=== PATIENT | male | born 1980 | race Caucasian/White ===

== ENCOUNTER 2018-02-10 15:18 | Emergency (ER) | payer SELFPAY ==
[~2018-02-10] VITALS: Ht 182.9 cm; Wt 74.2 kg
[2018-02-10 15:20] VITALS: TEMP 37.2; Ht 182.9 cm; Wt 74.2 kg
[2018-02-10 15:33] VITALS: O2SAT 95
[2018-02-10] MEDS ORDERED: ONDANSETRON INJ 2 MG/ML 2 ML VIAL IV STA (15:52)
[2018-02-10] MEDS ORDERED: SODIUM CHLORIDE 0.9% 1000ML 1,000 ML IV STA ×2 (15:52→17:20)
[2018-02-10 16:06] LABS: BASO % 0.5 %; BASO ABS # 0.03 K/uL (0-0.2); EOS % 0.2 %; EOS ABS # 0.01 K/uL (0-0.5); HEMOGLOBIN 15.6 g/dL (14.0-18.0); IG# 0.02 K/uL (0.00-0.02); LYMPH % 16.7 %; LYMPH ABS # 0.99 K/uL (1.2-3.4); MEAN CELL VOLUME 97.1 fL (80-100); MEAN CORPUSCULAR HEMOGLOBIN 34.4 pg (25-34); MEAN CORPUSCULAR HGB CONC 35.5 g/dl (32-36); MEAN PLATELET VOLUME 11.4 fL (7.4-10.4); MONO % 7.3 %; MONO ABS # 0.43 K/uL (0.11-0.59); NEUT ABS # 4.45 K/uL (1.4-6.5); PLATELET COUNT 170 K/uL (130-400); RED CELL DISTRIBUTION WIDTH CV 13.4 % (11.5-14.5); RED CELL DISTRIBUTION WIDTH SD 46.2 fL (36.4-46.3); WHITE BLOOD COUNT 5.93 K/uL (4.8-10.8)
[2018-02-10 16:10] LABS: CALCIUM 8.5 mg/dl (8.5-10.1); CREATININE 0.89 mg/dl (0.60-1.40); POTASSIUM 3.8 mmol/L (3.5-5.1)
[2018-02-10 16:13] LABS: TOTAL PROTEIN 7.6 gm/dl (6.4-8.2)
--- NOTE | 2018-02-10 16:47 | DIAGNOSTIC IMAGING REPORT ---
TWO VIEW CHEST CLINICAL HISTORY: Syncope. Nausea and dizziness. FINDINGS: PA and lateral chest radiographs are obtained. No prior studies are available for comparison at the time of dictation. The cardiomediastinal silhouette is unremarkable. The lungs and pleural spaces are clear. There is no pneumothorax. The bony thorax appears intact. IMPRESSION: No active disease in the chest. Electronically signed by: Solomon Butler M.D. 02/10/2018 4:45 PM Dictated Date/Time: 02/10/2018 4:45 PM
[2018-02-10] MEDS ORDERED: ONDA4TAB10 SL (18:35)
--- NOTE | 2018-02-10 18:38 | EMERGENCY ROOM VISIT NOTE ---
History First contact with patient: 15:27 Chief Complaint: SYNCOPE Stated Complaint: NAUSEA, DIZZINESS, PASSING OUT History of Present Illness The patient is a 37 year old male who presents to the Emergency Room with complaints of nausea, dizziness, and one episode of syncope which occurred today. The patient has had gastroenteritis-like symptoms for the past 4 days. He has been experiencing subjective fever, nausea, vomiting, difficulty keeping food or fluids down. The patient has not taken any medications for his symptoms. States food and liquid sounds repulsive at the moment. 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 He states he was in the walk-in refrigerator when he began feeling lightheaded and dizzy, and felt like he was going to pass out. He states he was leaned down in the cooler, and believes he lowered himself to the ground. He did not strike his head, nor does he have any symptoms of head injury. He states after awakening, he "felt weird", and stated he felt dehydrated and lightheaded. He denies any confusion, loss of strength, or paresthesias. This is the first time he has ever passed out. The patient complains of overall fatigue and ongoing nausea. He has not vomited yet today. The fall was unwitnessed, but he believes he was unconscious for less than 1 minute. He denies any recent travel, chest pain, dyspnea, wheezing, headache, palpitations, or other concerning symptoms. He denies any dysuria, hematuria, blood in his stool, ongoing diarrhea, back or flank pain, or abdominal pain. Review of Systems A complete 10 point review of systems was reviewed with the patient with pertinent positives and negatives as per history of present illness. All else were negative. Past Medical/Surgical History None Social History Smoking Status: Current Every Day Smoker Smokeless Tobacco Use: No Alcohol Use: occasionally Drug Use: none Marital Status: single Housing Status: lives with family Occupation Status: employed Current/Historical Medications Scheduled Ondasetron Odt (Zofran Odt), 4 MG SL Q6H Physical Exam Vital Signs Date Time Temp Pulse Resp B/P (MAP) Pulse Ox O2 Delivery O2 Flow Rate FiO2 02/10/18 18:57 91 18 159/100 96 02/10/18 17:10 98 18 157/107 97 Room Air 02/10/18 15:33 91 154/104 101 137/105 101 144/112 02/10/18 15:33 95 Room Air 02/10/18 15:20 37.2 102 17 152/107 98 Room Air Physical Exam VITALS: Vitals are noted on the nurse's note and reviewed by myself. Vital signs stable. GENERAL: This is a 37-year-old white male, in no acute distress, nondiaphoretic , well-developed well-nourished. SKIN: The skin was without rashes, erythema, edema, or bruising. There is no tenting of the skin. Capillary reflex less than 2 seconds. HEAD: Normocephalic atraumatic. EARS: External auditory canals clear, tympanic membranes pearly childs without erythema or effusion bilaterally. EYES: Pupils equal round and reactive to light and accommodation. Conjunctivae without injection, sclerae without icterus. Extraocular movements intact. NOSE: Patent, turbinates without inflammation or discharge. No sinus tenderness. MOUTH: Mucous membranes moist. Tonsils are not enlarged. Pharynx without erythema or exudate. Uvula midline. Airway patent. Tongue does not deviate. NECK: Supple without nuchal rigidity. No lymphadenopathy. No thyromegaly. Cervical spine is nontender. No JVD. HEART: Regular rate and rhythm without murmurs gallops or rubs. LUNGS: Clear to auscultation bilaterally without wheezes, rales or rhonchi. No dullness to percussion. No retractions or accessory muscle use. ABDOMEN: Positive bowel sounds x 4. Normal tympanic percussion. Soft, nontender, without masses or organomegaly. Murrell sign negative. No guarding or rebound tenderness. MUSCULOSKELETAL: No muscle atrophy, erythema, or edema noted. Full range of motion without joint tenderness in all extremities. No tenderness to palpation. Normal gait. Strength 5/5 throughout. NEURO: Patient was alert and oriented to person place and time. Normal sensation to light and sharp touch. Deep tendon reflexes 2+ throughout. No focal neurological deficits. Medical Decision & Procedures ER Provider Diagnostic Interpretation: TWO VIEW CHEST CLINICAL HISTORY: Syncope. Nausea and dizziness. FINDINGS: PA and lateral chest radiographs are obtained. No prior studies are available for comparison at the time of dictation. The cardiomediastinal silhouette is unremarkable. The lungs and pleural spaces are clear. There is no pneumothorax. The bony thorax appears intact. IMPRESSION: No active disease in the chest. Electronically signed by: Solomon Butler M.D. 02/10/2018 4:45 PM Dictated Date/Time: 02/10/2018 4:45 PM Laboratory Results 02/10/18 15:42 Red Blood Count 4.53, Mean Corpuscular Volume 97.1, Mean Corpuscular Hemoglobin 34.4, Mean Corpuscular Hemoglobin Concent 35.5, Mean Platelet Volume 11.4, Neutrophils (%) (Auto) 75.0, Lymphocytes (%) (Auto) 16.7, Monocytes (%) (Auto) 7.3, Eosinophils (%) (Auto) 0.2, Basophils (%) (Auto) 0.5, Neutrophils # (Auto) 4.45, Lymphocytes # (Auto) 0.99, Monocytes # (Auto) 0.43, Eosinophils # (Auto) 0.01, Basophils # (Auto) 0.03 02/10/18 15:42 Test 02/10/18 15:39 02/10/18 15:42 Bedside Glucose 90 mg/dl (70-99) White Blood Count 5.93 K/uL (4.8-10.8) Red Blood Count 4.53 M/uL (4.7-6.1) Hemoglobin 15.6 g/dL (14.0-18.0) Hematocrit 44.0 % (42-52) Mean Corpuscular Volume 97.1 fL (80-100) Mean Corpuscular Hemoglobin 34.4 pg (25-34) Mean Corpuscular Hemoglobin Concent 35.5 g/dl (32-36) Platelet Count 170 K/uL (130-400) Mean Platelet Volume 11.4 fL (7.4-10.4) Neutrophils (%) (Auto) 75.0 % Lymphocytes (%) (Auto) 16.7 % Monocytes (%) (Auto) 7.3 % Eosinophils (%) (Auto) 0.2 % Basophils (%) (Auto) 0.5 % Neutrophils # (Auto) 4.45 K/uL (1.4-6.5) Lymphocytes # (Auto) 0.99 K/uL (1.2-3.4) Monocytes # (Auto) 0.43 K/uL (0.11-0.59) Eosinophils # (Auto) 0.01 K/uL (0-0.5) Basophils # (Auto) 0.03 K/uL (0-0.2) RDW Standard Deviation 46.2 fL (36.4-46.3) RDW Coefficient of Variation 13.4 % (11.5-14.5) Immature Granulocyte % (Auto) 0.3 % Immature Granulocyte # (Auto) 0.02 K/uL (0.00-0.02) Anion Gap 9.0 mmol/L (3-11) Est Creatinine Clear Calc Drug Dose 119.3 ml/min Estimated GFR () 126.6 Estimated GFR (Non- 109.2 BUN/Creatinine Ratio 10.8 (10-20) Calcium Level 8.5 mg/dl (8.5-10.1) Total Bilirubin 0.4 mg/dl (0.2-1) Aspartate Amino Transf (AST/SGOT) 35 U/L (15-37) Alanine Aminotransferase (ALT/SGPT) 35 U/L (12-78) Alkaline Phosphatase 70 U/L (45-117) Total Protein 7.6 gm/dl (6.4-8.2) Albumin 4.0 gm/dl (3.4-5.0) Globulin 3.6 gm/dl (2.5-4.0) Albumin/Globulin Ratio 1.1 (0.9-2) Lipase 176 U/L (73-393) Medications Administered Medications (Trade) Dose Ordered Sig/Esther Route Start Time Stop Time Status Last Admin Dose Admin Sodium Chloride 1,000 ml @ 999 mls/hr Q1H1M STAT IV 02/10/18 15:52 02/10/18 16:52 DC 02/10/18 16:05 999 MLS/HR Ondansetron HCl (Zofran Inj) 4 mg NOW STAT IV 02/10/18 15:52 02/10/18 15:54 DC 02/10/18 16:05 4 MG Sodium Chloride 1,000 ml @ 999 mls/hr Q1H1M STAT IV 02/10/18 17:20 02/10/18 18:20 DC 02/10/18 17:28 999 MLS/HR ECG Per My Interpretation Indication: syncope Rate (beats per minute): 83 Rhythm: normal sinus Findings: no acute ischemic change, no ectopy Comparison ECG Date: no prior available ED Course The patient was seen and evaluated as above. IV access obtained, labs drawn. The patient was given 1 L normal saline solution and 4 mg Zofran IV. EKG performed. This was interpreted by myself as above. Chest x-ray performed and reviewed by myself and radiologist as above. The patient was reassessed. He is feeling slightly better, but continues to feel weak and tired. He is unable to tolerate p.o. fluids. The patient was given a second liter of normal saline solution. The patient was reassessed. He is feeling much better, and is tolerating p.o. fluids. The patient is feeling well enough for discharge. Discharge instructions reviewed, patient was discharged home in good condition. Medical Decision This is a 37-year-old male patient presents to the emergency department today complaining of 4 day history of subjective fever, vomiting, nausea, and one episode of syncope which occurred today. His workup in the emergency department here was overall unrevealing for any acute causes of the syncope. His CBC was without leukocytosis, anemia, thrombocytopenia. CMP did not show any renal, hepatic, electrolyte abnormalities. Lipase was normal at 176. Chest x-ray did not show any acute cardiopulmonary process. The patient's EKG was unrevealing. The patient's symptoms are consistent with an acute viral gastroenteritis, and he improved significantly with 2 L normal saline solution and 4 mg Zofran IV. The patient was feeling very well prior to discharge, and was able to tolerate p.o. fluids. He was encouraged to follow-up outpatient with his PCP, and return immediately to the emergency department for any significantly worsening symptoms or repeat syncopal episodes. I did discuss the case with Dr. Venegas, who is in agreement with the assessment and plan. Etiologies such as vasovagal event, infection, hypoglycemia, electrolyte abnormalities, gastroenteritis, influenza, cardiac sources, intracerebral event , toxicologic, neurologic, as well as others were entertained. The chart was completed utilizing [employer] voice recognition software. Grammatical errors, random word insertions, pronoun errors, and incomplete sentences are an occasional consequence of this system due to software limitations, ambient noise, and hardware issues. Any formal questions or concerns about the content, text, or information contained within the body of this dictation should be directly addressed to the provider for clarification. Medication Reconcilliation Current Medication List: was personally reviewed by me Blood Pressure Screening Patient's blood pressure: Elevated blood pressure Blood pressure disposition: Referred to PCP Impression Primary Impression: Syncope Additional Impression: Gastroenteritis Departure Information Dispostion Home / Self-Care Condition GOOD Prescriptions Ondasetron Odt (ZOFRAN ODT) 4 Mg Tab 4 MG SL Q6H for Nausea, #6 TAB Prov: Sunitha Deluna PA-C 02/10/18 Referrals No Doctor, Assigned (PCP) Patient Instructions ED Gastroenteritis Viral, ED Syncope Vasovagal, [facility] Additional Instructions You have been treated in the Emergency Department your syncope/nausea and vomiting. As discussed, I suspect a vasovagal reaction related to some slight dehydration associated with your recent nausea/vomiting from being sick. Laboratory results and imaging studies have ruled out any emergent causes for your symptoms which would warrant admission or surgery. You have been prescribed zofran to be used for any nausea or vomiting. Take as prescribed. For pain control, you can use the following [id number] medicines (if >12 yo): Ibuprofen(Motrin, Advil) may be used for fever or pain. Use 600mg every six hours as needed. Take with food. Avoid using more than 2400mg in a 24 hour period. Do not use 2400mg per day for more than three consecutive days without physician direction. Prolonged inappropriate use can lead to stomach upset or ulcers. (AND/OR) Acetaminophen(Tylenol) may be used for fever or pain. Use 1000mg every six hours as needed. Avoid using more than 3000mg in a 24 hour period. Drink plenty of water and stay well hydrated. As with any trip to the Emergency Department, you should follow-up with your Primary Care Provider from today's visit. Return to the emergency department if your symptoms persist despite treatment plan outlined above or if the following symptoms occur: increased fevers, chills , worsening nausea/vomiting, passing out, blood in your stool or urine. Problem Qualifiers Primary Impression: Syncope Syncope type: vasovagal syncope Qualified Codes: R55 - Syncope and collapse
[2018-02-10 18:57] VITALS: BP 159/100; PULSE 91; O2SAT 96
== END 2018-02-10 18:57 | disposition home or self-care (01) ==
LOC: C.EDB 15:21 → C.EDC 18:57
DX: R55 Syncope and collapse (principal); K52.9 Noninfective gastroenteritis and colitis, unspecified; F17.200 Nicotine dependence, unspecified, uncomplicated

== ENCOUNTER 2018-02-12 23:07 | Emergency (ER) | payer SELFPAY ==
[~2018-02-12] VITALS: Ht 182.9 cm; Wt 71.3 kg
[~2018-02-12 23:07] MED LIST: ONDA4TAB10 SL
[2018-02-12 23:10] VITALS: Ht 182.9 cm; Wt 71.3 kg
[2018-02-12] MEDS ORDERED: SODIUM CHLORIDE 0.9% 1000ML 1,000 ML IV STA (23:30)
[2018-02-12] MEDS ORDERED: ONDANSETRON INJ 2 MG/ML 2 ML VIAL IV STA (23:30)
[2018-02-12 23:49] LABS: BASO % 0.2 %; BASO ABS # 0.02 K/uL (0-0.2); HEMATOCRIT 46.5 % (42-52); HEMOGLOBIN 16.9 g/dL (14.0-18.0); IG# 0.02 K/uL (0.00-0.02); LYMPH % 12.7 %; LYMPH ABS # 1.36 K/uL (1.2-3.4); MEAN CELL VOLUME 95.7 fL (80-100); MEAN CORPUSCULAR HEMOGLOBIN 34.8 pg (25-34); MEAN CORPUSCULAR HGB CONC 36.3 g/dl (32-36); MEAN PLATELET VOLUME 11.3 fL (7.4-10.4); MONO % 5.7 %; MONO ABS # 0.61 K/uL (0.11-0.59); NEUT % 81.2 %; PLATELET COUNT 173 K/uL (130-400); RED CELL DISTRIBUTION WIDTH CV 13.1 % (11.5-14.5); RED CELL DISTRIBUTION WIDTH SD 44.5 fL (36.4-46.3); WHITE BLOOD COUNT 10.71 K/uL (4.8-10.8)
[2018-02-13 00:08] LABS: ALBUMIN 4.3 gm/dl (3.4-5.0); ALT/SGPT 37 U/L (12-78); AST/SGOT 34 U/L (15-37); BLOOD UREA NITROGEN 13 mg/dl (7-18); CALCIUM 9.2 mg/dl (8.5-10.1); CARBON DIOXIDE 25 mmol/L (21-32); CREATININE 0.93 mg/dl (0.60-1.40); GLUCOSE 98 mg/dl (70-99); LIPASE 124 U/L (73-393); POTASSIUM 3.7 mmol/L (3.5-5.1); SODIUM 135 mmol/L (136-145)
[2018-02-13 00:18] LABS: ALKALINE PHOSPHATASE 79 U/L (45-117); TOTAL PROTEIN 8.1 gm/dl (6.4-8.2)
[2018-02-13] MEDS ORDERED: OPTIRAY 320 IV PRN (00:45)
[2018-02-13] MEDS ORDERED: PROM12.57 PO (02:20)
--- NOTE | 2018-02-13 02:21 | EMERGENCY ROOM VISIT NOTE ---
History First contact with patient: 23:14 Chief Complaint: GI ASSESSMENT Stated Complaint: SEVERE FLU SYMPTOMS Nursing Triage Summary: Pt reports flu-like illness since last weekend. Pt reports he attempted to go to work thursday and had syncopal episode at work and was brought here to ER. Pt hydrated and sent home with zofran. Pt reports he has no improved in the last 2 days and feels like he is running a fever now. Reporting diarrhea, nausea, vomiting, and right upper quadrant abdominal pain. Reports minimal oral intake and that "the zofran doesn't stop me from vomiting". History of Present Illness The patient is a 37 year old male who presents to the Emergency Room with complaints of persistent vomiting and diarrhea. The patient states that he was seen here 2 days ago due to nausea, vomiting and diarrhea. He states that he does not feel any better. He states that he feels like he is "burning up", although he does not have a fever. He has been short of breath and fatigued. He has had persistent vomiting and diarrhea. He was seen here 2 days ago due to a syncopal episode, but states he has had no further episodes of syncope. He has had some pain in his left upper abdomen as well as some generalized abdominal cramping and pain. He rates his overall discomfort a 4/10. He is a smoker. He denies any recent travel. He denies any medical problems. He has taken Zofran without relief. He denies chest pain or cough. He denies blood in his stools. Review of Systems A complete 10 point review of systems was reviewed with the patient with pertinent positives and negatives as per history of present illness. All else were negative. Past Medical/Surgical History Medical Problems: (1) No significant active problems Social History Smoking Status: Current Every Day Smoker Alcohol Use: occasionally Drug Use: none Marital Status: single Housing Status: lives with family Occupation Status: employed Current/Historical Medications Scheduled Ondasetron Odt (Zofran Odt), 4 MG SL Q6H Scheduled PRN Promethazine (Phenergan ), 1-2 TABS PO Q6H PRN for Nausea or Vomiting Physical Exam Vital Signs Date Time Temp Pulse Resp B/P (MAP) Pulse Ox O2 Delivery O2 Flow Rate FiO2 02/13/18 02:32 37.2 91 19 140/103 94 02/13/18 02:01 139/96 02/13/18 01:42 74 25 93 02/13/18 01:31 158/103 02/13/18 00:42 95 16 96 02/13/18 00:37 92 22 94 02/13/18 00:07 84 19 96 02/13/18 00:01 146/103 02/12/18 23:52 79 02/12/18 23:43 158/99 02/12/18 23:10 37.2 109 18 150/103 96 Room Air Physical Exam VITALS: Vitals are noted on the nurse's note and reviewed by myself. Vital signs stable. GENERAL: This is a 37-year-old male, in no acute distress, nondiaphoretic, well- developed well-nourished. SKIN: The skin was without rashes. HEAD: Normocephalic atraumatic. EARS: External auditory canals clear, tympanic membranes pearly childs without erythema or effusion bilaterally. EYES: Pupils equal round and reactive to light and accommodation. MOUTH: Mucous membranes moist. Tonsils are not enlarged. Pharynx without erythema or exudate. NECK: Supple without nuchal rigidity. No lymphadenopathy. HEART: Regular rate and rhythm without murmurs gallops or rubs. LUNGS: Clear to auscultation bilaterally without wheezes, rales or rhonchi. ABDOMEN: Positive bowel sounds x 4. Soft, mild generalized tenderness to palpation. No guarding or rebound tenderness. NEURO: Patient was alert and oriented to person place and time. Medical Decision & Procedures ER Provider Diagnostic Interpretation: CT ABDOMEN & PELVIS With Contrast: No acute findings in the abdomen or pelvis. Fatty infiltration of the liver. Sigmoid diverticulosis without acute inflammation. Appendix is normal. CTA CHEST: No evidence of pulmonary embolus or aortic dissection. Lungs are clear. No evidence of rib fracture. Radiologist: Cleve Cross DO Laboratory Results 02/12/18 23:25 Red Blood Count 4.86, Mean Corpuscular Volume 95.7, Mean Corpuscular Hemoglobin 34.8, Mean Corpuscular Hemoglobin Concent 36.3, Mean Platelet Volume 11.3, Neutrophils (%) (Auto) 81.2, Lymphocytes (%) (Auto) 12.7, Monocytes (%) (Auto) 5.7, Eosinophils (%) (Auto) 0.0, Basophils (%) (Auto) 0.2, Neutrophils # (Auto) 8.70, Lymphocytes # (Auto) 1.36, Monocytes # (Auto) 0.61, Eosinophils # (Auto) 0.00, Basophils # (Auto) 0.02 02/12/18 23:25 Test 02/12/18 23:25 02/13/18 01:30 White Blood Count 10.71 K/uL (4.8-10.8) Red Blood Count 4.86 M/uL (4.7-6.1) Hemoglobin 16.9 g/dL (14.0-18.0) Hematocrit 46.5 % (42-52) Mean Corpuscular Volume 95.7 fL (80-100) Mean Corpuscular Hemoglobin 34.8 pg (25-34) Mean Corpuscular Hemoglobin Concent 36.3 g/dl (32-36) Platelet Count 173 K/uL (130-400) Mean Platelet Volume 11.3 fL (7.4-10.4) Neutrophils (%) (Auto) 81.2 % Lymphocytes (%) (Auto) 12.7 % Monocytes (%) (Auto) 5.7 % Eosinophils (%) (Auto) 0.0 % Basophils (%) (Auto) 0.2 % Neutrophils # (Auto) 8.70 K/uL (1.4-6.5) Lymphocytes # (Auto) 1.36 K/uL (1.2-3.4) Monocytes # (Auto) 0.61 K/uL (0.11-0.59) Eosinophils # (Auto) 0.00 K/uL (0-0.5) Basophils # (Auto) 0.02 K/uL (0-0.2) RDW Standard Deviation 44.5 fL (36.4-46.3) RDW Coefficient of Variation 13.1 % (11.5-14.5) Immature Granulocyte % (Auto) 0.2 % Immature Granulocyte # (Auto) 0.02 K/uL (0.00-0.02) D-Dimer 510 ug/L FEU (0-500) Anion Gap 10.0 mmol/L (3-11) Est Creatinine Clear Calc Drug Dose 109.7 ml/min Estimated GFR () 121.1 Estimated GFR (Non- 104.5 BUN/Creatinine Ratio 13.7 (10-20) Calcium Level 9.2 mg/dl (8.5-10.1) Total Bilirubin 1.1 mg/dl (0.2-1) Aspartate Amino Transf (AST/SGOT) 34 U/L (15-37) Alanine Aminotransferase (ALT/SGPT) 37 U/L (12-78) Alkaline Phosphatase 79 U/L (45-117) Total Creatine Kinase 145 U/L (39-308) Troponin I < 0.015 ng/ml (0-0.045) Total Protein 8.1 gm/dl (6.4-8.2) Albumin 4.3 gm/dl (3.4-5.0) Globulin 3.8 gm/dl (2.5-4.0) Albumin/Globulin Ratio 1.1 (0.9-2) Lipase 124 U/L (73-393) Urine Color YELLOW Urine Appearance CLEAR (CLEAR) Urine pH 7.0 (4.5-7.5) Urine Specific [place] > 1.045 (1.000-1.030) Urine Protein NEG (NEG) Urine Glucose (UA) NEG (NEG) Urine Ketones 2+ (NEG) Urine Occult Blood TRACE (NEG) Urine Nitrite NEG (NEG) Urine Bilirubin NEG (NEG) Urine Urobilinogen NEG (NEG) Urine Leukocyte Esterase NEG (NEG) Urine WBC (Auto) 1-5 /hpf (0-5) Urine RBC (Auto) 0-4 /hpf (0-4) Urine Hyaline Casts (Auto) 1-5 /lpf (0-5) Urine Epithelial Cells (Auto) 5-10 /lpf (0-5) Urine Bacteria (Auto) NEG (NEG) Medications Administered Medications (Trade) Dose Ordered Sig/Esther Route Start Time Stop Time Status Last Admin Dose Admin Sodium Chloride 1,000 ml @ 999 mls/hr Q1H1M STAT IV 02/12/18 23:30 02/13/18 00:30 DC 02/13/18 00:02 999 MLS/HR Ondansetron HCl (Zofran Inj) 4 mg NOW STAT IV 02/12/18 23:30 02/12/18 23:32 DC 02/13/18 00:02 4 MG ECG Per My Interpretation Indication: SOB/dyspnea Rate (beats per minute): 88 Rhythm: normal sinus Findings: no acute ischemic change, no ectopy Change: no significant change Medical Decision Differential diagnosis includes viral illness, gastroenteritis, PE, pericarditis , myocarditis, pneumonia, drug withdrawal, among others. The patient is a 37-year-old male who presents today complaining of persistent vomiting and diarrhea as well as generalized weakness and shortness of breath. Labs revealed no leukocytosis, anemia or concerning electrolyte abnormalities. Urinalysis was not suggestive of infection. EKG shows a normal sinus rhythm. D -dimer was minimally elevated. CT of the chest for PE was performed and was negative for pulmonary embolism. CT of the abdomen and pelvis was performed as well and shows no acute findings. Patient was given IV fluids and Zofran. His vital signs have been stable. I did consider possible drug withdrawal as an etiology of the patient's symptoms, however he adamantly denies any drug use. He was advised to stay well-hydrated at home and take a few days off work. He will follow up with his primary care provider for further evaluation. The patient's case was reviewed with Dr. Zaldivar, ED attending physician, who agreed with my assessment and treatment plan. Based on the patient's presentation and work up, I feel the patient is stable for outpatient treatment. The patient was educated to return to the emergency department for any worsening of their current condition or new/concerning symptoms. He will follow up with his PCP. Medication Reconcilliation Current Medication List: was personally reviewed by me Blood Pressure Screening Patient's blood pressure: Elevated blood pressure Blood pressure disposition: Referred to PCP Impression Primary Impression: Nausea, vomiting and diarrhea Departure Information Dispostion Home / Self-Care Condition GOOD Prescriptions Promethazine (Phenergan ) 12.5 Mg Tab 1-2 TABS PO Q6H Y for Nausea or Vomiting, #12 TAB Prov: Jaclyn Schmitt ., CHETAN 02/13/18 Referrals No Doctor, Assigned (PCP) Patient Instructions [facility] Additional Instructions You have been treated in the Emergency Department for your vomiting and diarrhea. Laboratory results and imaging studies have ruled out any emergent causes for your symptoms which would warrant admission or surgery. You have been prescribed Phenergan to be used for any nausea or vomiting. Take as prescribed. You may use this for nausea/vomiting which is not controlled by the Zofran. Be aware that this medication may make you drowsy. For pain control, you can use the following [id number] medicines (if >12 yo): - Regular strength (325mg/tab) Tylenol (acetaminophen) 2 tabs every 4-6 hours as needed. Do not exceed 12 tablets in a 24 hour period. Avoid taking more than 4 grams (4000 mg) of Tylenol per day. This includes any other sources of acetaminophen you may take on a regular basis. - Regular strength (200 mg/tab) Advil (ibuprofen) 1-2 tabs every 4-6 hours as needed. Do not exceed a dose of 3200 mg per day. Drink plenty of water and stay well hydrated. You should be drinking frequent small sips of fluids. As with any trip to the Emergency Department, you should follow-up with your Primary Care Provider from today's visit. Contact them to make an appointment within 48 hours for recheck. Return to the emergency department if your symptoms persist despite treatment plan outlined above or if the following symptoms occur: Fevers, worsening symptoms, passing out, inability to keep anything down, or any other new/ concerning symptoms.
[2018-02-13 02:32] VITALS: BP 140/103; PULSE 91; TEMP 37.2; O2SAT 94
--- NOTE | 2018-02-13 05:37 | DIAGNOSTIC IMAGING REPORT ---
CHEST ONE VIEW PORTABLE CLINICAL HISTORY: 37 years-old Male presenting with sob. TECHNIQUE: Portable upright AP view of the chest was obtained. COMPARISON: 02/10/2018. FINDINGS: Cardiomediastinal silhouette normal. Lungs and pleural spaces clear. Osseous structures normal. Upper abdomen normal. IMPRESSION: 1. No acute cardiopulmonary disease. Electronically signed by: Kalyan Ceja M.D. 02/13/2018 5:35 AM Dictated Date/Time: 02/13/2018 5:35 AM
--- NOTE | 2018-02-13 06:38 | DIAGNOSTIC IMAGING REPORT ---
ABD/PELVIS IV CONTRAST ONLY CLINICAL HISTORY: 37 years-old Male presenting with shortness of breath, left rib/upper abd pain, pain at the left ribs. TECHNIQUE: Multidetector CT of the abdomen and pelvis was performed after the administration of intravenous contrast. IV contrast: 92 mL of Optiray 320. A dose lowering technique was used consistent with the principles of ALARA (as low as reasonably achievable). COMPARISON: None. CT DOSE (mGy.cm): The estimated cumulative dose is 597.39 inclusive of the CTA chest. FINDINGS: [employer] topogram: Unremarkable. Lung bases: Lungs and pleural spaces clear. Normal heart size. No pericardial or pleural effusion. Liver: Normal morphology. Density consistent with hepatic steatosis. No focal lesion. Patent hepatic vasculature. Biliary: No intrahepatic or extrahepatic biliary ductal dilatation. Normal gallbladder. Pancreas: Normal. Spleen: Normal. Adrenal glands: Normal. Kidneys and ureters: Normal. No hydronephrosis. Bladder: Circumferential bladder wall thickening. Pelvic organs: Prostate and seminal vesicles normal. Bowel: Limited diverticulosis of the sigmoid colon. Normal appendix. No bowel obstruction. Peritoneal cavity: No free fluid or intraperitoneal gas. Lymph nodes: No enlarged lymph nodes in the abdomen or pelvis. Vasculature: Aorta and IVC patent and normal in caliber. Abdominal wall: Normal. Musculoskeletal: Normal. IMPRESSION: 1. Bladder wall thickening could suggest cystitis. Correlate with urinalysis. 2. Hepatic steatosis. Correlate with liver function tests to exclude steatohepatitis as a cause for abdominal pain. The report will be called/faxed according to standard departmental protocol. Electronically signed by: Kalyan Ceja M.D. 02/13/2018 6:36 AM Dictated Date/Time: 02/13/2018 6:30 AM
--- NOTE | 2018-02-13 06:43 | DIAGNOSTIC IMAGING REPORT ---
(CHEST FOR PE) ANGIO WITH CLINICAL HISTORY: 37 years-old Male presenting with ^shortness of breath, left rib/upper abd pain. TECHNIQUE: Multidetector CT angiography of the chest was performed after administration of intravenous contrast. 3-D volumetric and/or maximum intensity projection (MIP) images were subsequently reconstructed for review. IV contrast: 92 mL of Optiray 320. A dose lowering technique was used consistent with the principles of ALARA (as low as reasonably achievable). COMPARISON: Chest x-ray performed the previous day. CT DOSE (mGy.cm): The estimated cumulative dose is 597.39 mGy.cm. FINDINGS: [employer] topogram: Unremarkable. Pulmonary vasculature: The study is adequate for assessment of the pulmonary vascular tree. No filling defect within the pulmonary arteries to suggest embolus. Main pulmonary artery is not enlarged. No flattening of the interventricular septum. No intracardiac filling defect. No reflux of contrast into the hepatic veins. Remaining chest: On soft tissue windows, normal thyroid and thoracic inlet. No axillary, supraclavicular, hilar, or mediastinal lymphadenopathy. Normal aorta. Normal heart size. Coronary artery calcification. No pericardial or pleural effusion. Hepatic steatosis. On lung windows, minimal paraseptal emphysema at the lung apices. Trace centrilobular emphysematous changes also noted at the apices. No focal infiltrate or nodule. Airways patent. On bone windows, normal osseous structures. IMPRESSION: 1. No evidence of pulmonary embolus. No acute intrathoracic pathology. 2. Trace emphysema. 3. Hepatic steatosis. Electronically signed by: Kalyan Ceja M.D. 02/13/2018 6:41 AM Dictated Date/Time: 02/13/2018 6:36 AM
== END 2018-02-13 02:32 | disposition home or self-care (01) ==
LOC: C.EDB 23:08 → C.EDC 02-13 02:32
DX: R11.2 Nausea with vomiting, unspecified (principal); R19.7 Diarrhea, unspecified; R06.02 Shortness of breath; F17.200 Nicotine dependence, unspecified, uncomplicated